=== PATIENT | male | born 2000 | race Caucasian/White ===

== ENCOUNTER 2022-12-24 01:00 | Emergency (ER) | payer SELFPAY ==
[~2022-12-24] VITALS: Ht 170.2 cm; Wt 86.2 kg
[2022-12-24 01:00] VITALS: BP 125/90
--- NOTE | 2022-12-24 01:03 | NUR ---
Dr. Gifford examining patient.
--- NOTE | 2022-12-24 01:10 | NUR ---
Patient D/C to custody.
== END 2022-12-24 01:10 ==
LOC: MED 01:00
DX: Z02.89 Encounter for other administrative examinations (principal); V89.2XXA Person injured in unspecified motor-vehicle accident, traffic, initial encounter; Y93.89 Activity, other specified; Y92.410 Unspecified street and highway as the place of occurrence of the external cause; Y99.8 Other external cause status
CPT/HCPCS: 99283